=== PATIENT | female | born 2005 | race American Indian/Alaskan Native ===

== ENCOUNTER 2023-04-19 11:36 | Emergency (ER) | payer SELFPAY ==
[2023-04-19 12:38] LABS: APPEARANCE,URINE SLT CLOUDY; BILIRUBIN,URINE NEGATIVE (NEGATIVE); COLOR,URINE YELLOW; GLUCOSE,URINE NEGATIVE (NEGATIVE); KETONES,URINE NEGATIVE (NEGATIVE); LEUKOCYTE ESTERASE,URINE NEGATIVE (NEGATIVE); NITRITE,URINE POSITIVE (NEGATIVE); OCCULT BLOOD,URINE NEGATIVE (NEGATIVE); PROTEIN,URINE NEGATIVE (NEGATIVE); UROBILINOGEN,URINE 0.2 EU/dL (<2.0)
[2023-04-19 12:49] LABS: BACTERIA,URINE 3+ (NEGATIVE); EPITHELIAL CELLS,URINE OCCASIONAL (NONE-FEW); RBC,URINE 0-2 (0-2/HPF)
[2023-04-19 12:56] LABS: CANDIDA DNA PROBE NEGATIVE (NEGATIVE); GARDNERELLA DNA PROBE POSITIVE (NEGATIVE); TRICHOMONAS DNA PROBE NEGATIVE (NEGATIVE)
[2023-04-19] MEDS: cefTRIAXone 1 GM Vial IM STA (13:34)
[2023-04-19] MEDS: Lidocaine 1% 5 ML VIAL INJECT ONE (13:35)
[2023-04-19 13:41] LABS: HIV12 AG/AB 4TH GEN W/REFLEX 0.7 INDEX (<1.0)
[2023-04-19 13:42] LABS: C. TRACHOMATIS BY PCR DETECTED; N. GONORRHOEAE BY PCR DETECTED
== END 2023-04-19 13:56 | disposition home or self-care (01) ==
LOC: MW.ED 11:36
DX: N76.0 Acute vaginitis (principal); B96.89 Other specified bacterial agents as the cause of diseases classified elsewhere; Z11.3 Encounter for screening for infections with a predominantly sexual mode of transmission; Z20.2 Contact with and (suspected) exposure to infections with a predominantly sexual mode of transmission; Z86.19 Personal history of other infectious and parasitic diseases
CPT/HCPCS: 81001; 81025; 86592; 86803; 87086; 87389; 87480; 87491; 87510; 87591; 87660; 96372; 99283; J0696; 36415; 86593; 86780; J3490